=== PATIENT | male | born 1955 | race Caucasian/White ===

== ENCOUNTER 2022-11-10 20:11 | Emergency (ER) | payer OTHER ==
[2022-11-10 20:30] VITALS: BP 183/91; PULSE 64; RESP 17; TEMP 98.6; BMI 28.8
[2022-11-10] MEDS ORDERED: ONDANSETRON 4 MG/2 ML VIAL IVPB ONE ×2 (21:11→22:21)
[2022-11-10] MEDS ORDERED: SODIUM CHLORIDE 500 ML IV STA (21:12)
[2022-11-10] MEDS ORDERED: FAMOTIDINE 20 MG/50 ML IVPB 20 MG/50 ML MG IVPB ONE ×2 (21:12→21:29)
[2022-11-10] MEDS ORDERED: ONDANSETRON 4 MG/2 ML VIAL ONE ×2 (21:15→22:25)
[2022-11-10 21:32] LABS: HEMATOCRIT 43.1 % (35.4-49); HEMOGLOBIN 14.4 G/dL (11.7-16.9); MCH 30.4 pg (25.7-33.7); MCHC 33.3 g/dl (32.0-35.9); MEAN CELL VOLUME 91.3 fl (80-96); MEAN PLT VOLUME 10.5 fl (7.5-11.1); PLATELET COUNT 192.3 10^3/uL (134-434); RBC 4.72 10^6/uL (4.00-5.60); RDW 13.9 % (11.9-15.9); WHITE BLOOD COUNT 8.4 10^3/uL (4.0-10.8)
[2022-11-10] MEDS ORDERED: KETOROLAC TROMETHAMINE 30 MG/1 ML VIAL IVPUSH ONE (21:36)
[2022-11-10 21:42] LABS: PLATELET ESTIMATE ADEQUATE
[2022-11-10 21:43] LABS: ALBUMIN 4.4 g/dl (3.4-5.0); BILIRUBIN,TOTAL 0.4 mg/dl (0.2-1); BLOOD UREA NITROGEN 25.7 mg/dl (7-18); CALCIUM 8.8 mg/dl (8.5-10.1); CREATININE 1.4 mg/dl (0.6-1.3); POTASSIUM 3.9 mmol/L (3.5-5.1); SGOT/AST 20.8 U/L (15-37); SGPT/ALT 17.3 U/L (7-52); TOT PROT 6.6 g/dl (6.4-8.2)
[2022-11-11 01:03] LABS: URINE APPEARANCE Clear; URINE BILIRUBIN Negative (NEGATIVE); URINE COLOR Yellow; URINE GLUCOSE (UA) Negative (NEGATIVE); URINE KETONE 1+ (NEGATIVE); URINE LEUK ESTERASE Negative (NEGATIVE); URINE NITRITE Negative (NEGATIVE); URINE PROTEIN Negative (NEGATIVE); URINE UROBILINOGEN 0.2 mg/dL (0.2-1.0)
[2022-11-11 07:57] LABS: EPI CELLS 2.1 /uL (0-25.1); HYALINE CASTS 0.29 /uL (0-3.1); URINE BACTERIA 4.1 /uL (0-1359); URINE CRYSTALS NEGATIVE /hpf; URINE RBC 12.7 /uL (0-23.9); URINE WBC 4.8 /uL (0-25.8)
== END 2022-11-11 00:23 | disposition home or self-care (01) ==
LOC: FER 20:11
PROC: 3E033GC Introduction of Other Therapeutic Substance into Peripheral Vein, Percutaneous Approach (ICD-10-PCS; principal; 2022-11-10)
PROC: 3E0333Z Introduction of Anti-inflammatory into Peripheral Vein, Percutaneous Approach (ICD-10-PCS; 2022-11-10)
PROC: 3E033GC Introduction of Other Therapeutic Substance into Peripheral Vein, Percutaneous Approach (ICD-10-PCS; 2022-11-10)
PROC: 3E033GC Introduction of Other Therapeutic Substance into Peripheral Vein, Percutaneous Approach (ICD-10-PCS; 2022-11-10)
DX: R11.2 Nausea with vomiting, unspecified (principal); R10.9 Unspecified abdominal pain; N23 Unspecified renal colic
CPT/HCPCS: 36415; 74018-TC-FY; 74177-TC; 80053; 81003; 85027; 99285-25; Q9967